=== PATIENT | female | born 1930 | race Caucasian/White ===

== ENCOUNTER 2017-08-20 12:50 | Emergency (ER) | payer OTHER, MEDICARE ==
[2017-08-20 13:14] VITALS: TEMP 98; BMI 19.7
--- NOTE | 2017-08-20 13:16 | PDOC ---
History of Present Illness - General Chief Complaint: Syncope/Near Syncope Stated Complaint: SYNCOPE Time Seen by Provider: 08/20/17 13:15 - History of Present Illness Initial Comments: 08/20/17 13:17 Ms. Go is an 87 yo female w/ pmh of HTN, 2 "slipped discs," chronic arthritis pain for which she sees a pain management physician (Dr. Phelps) who presents after patient observed to have "passed out" while eating lunch today at the table. Per home health aid who was taking care of her she did not fall or hit her head but remained seated in her chair. Son who is with her reports that she took a new pain medication last night before bedtime but he cannot recall what it was. He reports she did not seem herself this morning either. Ms. Go currently feels her normal self however is complaining of "pulling" of her leg muscles that she says is common for her and her son terms muscle spasms. The patient denies chest pain, shortness of breath, headache and dizziness. Denies fever, chills, nausea, vomit, diarrhea and constipation. Denies dysuria, frequency, urgency and hematuria. Past History - Past Medical History Allergies/Adverse Reactions: Allergies Allergy/AdvReac Type Severity Reaction Status Date / Time Sulfa (Sulfonamide Allergy Intermediate ITCHY Verified 08/25/15 08:38 Antibiotics) THROAT [Sulfa(Sulfonamide Antibiotics)] celecoxib [From Celebrex] Allergy Mild Rash Verified 08/25/15 08:38 Penicillins Allergy Mild Hives Verified 08/25/15 08:38 tolnaftate [From Tinactin] Allergy Unknown Verified 08/25/15 08:38 levofloxacin [From Levaquin] Allergy Verified 08/25/15 08:38 Home Medications: Ambulatory Orders Alprazolam [Xanax] 0.125 mg PO HS 08/25/15 Multivitamin [Poly-Vitamin] 1 each PO DAILY 08/25/15 Heparin - 5,000 unit SQ BID vial 08/30/15 Silver Sulfadiazine 1% Top Cr [Silvadene -] 1 applic TP BID jar 08/30/15 traMADol HCL [Ultram -] 25 mg PO TID PRN #30 tablet MDD 3 08/30/15 Nitrofurantoin Monohyd/M-Cryst [Macrobid -] 100 mg PO BID #14 capsule 08/20/17 Anemia: No Asthma: No Cancer: No Cardiac Disorders: No CVA: No COPD: No HTN: Yes - Surgical History Abdominal Surgery: Yes (HERNIA REPAIR: 06/2011) - Immunization History Immunization Up to Date: Yes - Suicide/Smoking/Psychosocial Hx Smoking Status: Yes Smoking History: Unknown if ever smoked Have you smoked in the past 12 months: No Number of Cigarettes Smoked Daily: 0 Hx Alcohol Use: No Drug/Substance Use Hx: No Substance Use Type: None Hx Substance Use Treatment: No Review of Systems - Review of Systems Comments:: 08/20/17 13:48 GENERAL/CONSTITUTIONAL: No fever or chills. No weakness. HEAD, EYES, EARS, NOSE AND THROAT: No change in vision. No ear pain or discharge. No sore throat. CARDIOVASCULAR: No chest pain or shortness of breath RESPIRATORY: No cough, wheezing, or hemoptysis. GASTROINTESTINAL: No nausea, vomiting, diarrhea or constipation. GENITOURINARY: No dysuria, frequency, or change in urination. MUSCULOSKELETAL: No joint or muscle swelling or pain. No neck or back pain. SKIN: No rash NEUROLOGIC: No headache, vertigo, loss of consciousness, or change in strength/ sensation. ENDOCRINE: No increased thirst. No abnormal weight change HEMATOLOGIC/LYMPHATIC: No anemia, easy bleeding, or history of blood clots. ALLERGIC/IMMUNOLOGIC: No hives or skin allergy. *Physical Exam - Vital Signs Last Vital Signs Temp Pulse Resp BP Pulse Ox 98.0 F 82 18 151/73 96 08/20/17 13:07 08/20/17 13:07 08/20/17 13:07 08/20/17 13:07 08/20/17 13:07 - Physical Exam Comments: 08/20/17 13:48 GENERAL: Awake, alert, and fully oriented, in no acute distress HEAD: No signs of trauma, normocephalic, atraumatic EYES: PERRLA, EOMI, sclera anicteric, conjunctiva clear ENT: Auricles normal inspection, hearing grossly normal, nares patent, oropharynx clear without exudates. Moist mucosa NECK: Normal ROM, supple, no lymphadenopathy, JVD, or masses LUNGS: No distress, speaks full sentences, clear to auscultation bilaterally HEART: Regular rate and rhythm, normal S1 and S2, no murmurs, rubs or gallops, peripheral pulses normal and equal bilaterally. ABDOMEN: Soft, nontender, normoactive bowel sounds. No guarding, no rebound. No masses EXTREMITIES: Normal inspection, Normal range of motion, no edema. No clubbing or cyanosis. NEUROLOGICAL: Cranial nerves II through XII grossly intact. Normal speech, normal gait, no focal sensorimotor deficits SKIN: Warm, Dry, normal turgor, no rashes or lesions noted. ED Treatment Course - LABORATORY CBC & Chemistry Diagram: 08/20/17 13:30 08/20/17 13:30 Medical Decision Making - Medical Decision Making 08/20/17 16:11 Ms. Go is an 87 yo female w/ pmh as described who presents for evaluation of syncopal episode. Patient newly placed on Baclofen and per son and aide she was altered after taking it for the first time last night until her syncopal episode. Is reportedly back to baseline upon arrival to ER per son and aide. Labs significant for Leukocyte Esterase of 3+, EKG normal, labs otherwise unconcerning as below. Concern for acute process at this time very low as patient back to baseline with stable vitals, no troponin elevation, no continuing symptoms, and patient resting comfortably. PCP paged to alert of presentation and discuss further care and follow-up needs. 08/20/17 16:[address] Dyer (covering for Dr. Montero) who agrees with plan to treat for UTI and discharge with follow-up evaluation this week. Macrobid given in ED and sent to patient's pharmacy as well. Discharging to home. Laboratory Results - last 24 hr 08/20/17 08/20/17 08/20/17 13:30 13:30 15:19 WBC 5.0 D RBC 3.63 Hgb 11.7 Hct 34.3 MCV 94.5 MCH 32.2 MCHC 34.1 RDW 13.1 Plt Count 216 MPV 6.9 L Neutrophils % 74.5 Lymphocytes % 19.0 D Monocytes % 5.3 Eosinophils % 0.5 Basophils % 0.7 Sodium 140 Potassium 4.6 Chloride 102 Carbon Dioxide 30 Anion Gap 8 BUN 29 H Creatinine 1.2 H Creat Clearance w eGFR 42.30 Random Glucose 125 H Calcium 8.6 Total Bilirubin 0.4 AST 16 ALT 19 Alkaline Phosphatase 60 Creatine Kinase 80 Troponin I < 0.02 Total Protein 6.2 L Albumin 3.5 Urine Color Yellow Urine Appearance Cloudy Urine pH 8.0 D Ur Specific [place] 1.015 Urine Protein Negative Urine Glucose (UA) Negative Urine Ketones Negative Urine Blood Negative Urine Nitrite Negative Urine Bilirubin Negative Urine Urobilinogen Negative Ur Leukocyte Esterase 3+ H *DC/Admit/Observation/Transfer Diagnosis at time of Disposition: UTI (urinary tract infection) Qualifiers: Urinary tract infection type: site unspecified Hematuria presence: without hematuria Qualified Code(s): N39.0 - Urinary tract infection, site not specified Syncope Qualifiers: Syncope type: unspecified Qualified Code(s): R55 - Syncope and collapse - Discharge Dispostion Disposition: HOME - Referrals Referrals: Francisco Montero MD [Primary Care Provider] - - Patient Instructions Printed Discharge Instructions: DI for Urinary Tract Infection (UTI), DI for Syncope in Adults (Fainting) Additional Instructions: Please return if any pain, fever, chills, altered mental status, or any other concerning symptoms. Follow-up with primary care provider this week in clinic for further evaluation. A prescription for your UTI has been sent to your pharmacy. Take medications as prescribed. - Post Discharge Activity
[2017-08-20 13:37] LABS: BASO % 0.7 % (0-2.0); EOS % 0.5 % (0-4.5); HEMATOCRIT 34.3 % (32.4-45.2); HEMOGLOBIN 11.7 GM/dL (10.7-15.3); MCH 32.2 pg (25.7-33.7); MCHC 34.1 g/dl (32.0-36.0); MEAN CELL VOLUME 94.5 fl (80-96); MEAN PLT VOLUME 6.9 fl (7.5-11.1); MONO % 5.3 % (3.8-10.2); NEUT % 74.5 % (42.8-82.8); PLATELET COUNT 216 K/MM3 (134-434); RBC 3.63 M/mm3 (3.60-5.2); RDW 13.1 % (11.6-15.6)
[2017-08-20 14:03] LABS: ALBUMIN 3.5 g/dl (3.4-5.0); ANION GAP 8 (8-16); BILIRUBIN,TOTAL 0.4 mg/dL (0.2-1.0); BLOOD UREA NITROGEN 29 mg/dL (7-18); CALCIUM 8.6 mg/dL (8.5-10.1); CHLORIDE 102 mmol/L (98-107); CO2 30 mmol/L (21-32); CREATININE 1.2 mg/dL (0.55-1.02); GLUCOSE,RANDOM 125 mg/dL (74-106); POTASSIUM 4.6 mmol/L (3.5-5.1); SGOT/AST 16 U/L (15-37); SGPT/ALT 19 U/L (12-78); SODIUM 140 mmol/L (136-145); TOT PROT 6.2 g/dl (6.4-8.2)
[2017-08-20 14:06] LABS: ALK PHOS 60 U/L (45-117)
--- NOTE | 2017-08-20 15:31 | PDOC ---
Attending Attestation - Resident Resident Name: Drew Mcgill - ED Attending Attestation I have performed the following: I have examined & evaluated the patient, The case was reviewed & discussed with the resident, I agree w/resident's findings & plan - HPI HPI: 08/20/17 15:26 87-year-old female presents brought in by aid and EMS after syncopal episode this morning. Patient took her first dose of baclofen last night, and since then has been increasingly somnolent including this morning. While eating breakfast, the patient was witnessed to lose consciousness, the aide had difficulty arousing her, so she activated EMS. Patient arrives here without complaints, states she simply feels tired since taking her new pain medication. Denied a chest pain/palpitations, no history of recurring syncope, no recent infections or dehydration. Patient is currently at her baseline without complaints, aide confirms. - Physicial Exam PE: 08/20/17 15:27 Vital signs are normal Well-appearing, very alert and oriented 87-year-old woman in stretcher Moist mucosa Heart is regular, lungs are clear, abdomen benign Negative trauma exam Nonfocal neuro exam - Medical Decision Making 08/20/17 15:28 Patient seen and evaluated with the resident. I agree with the overall evaluation, assessment, and management with the following summary of visit: 87-year-old female with syncope in the setting of somnolence, likely secondary to starting baclofen last night. Feels well now, no cardiopulmonary or infectious complaints. check full labs, urinalysis cxr, ekg discuss with Dr. Montero. Pt wants to go home and does not feel need tele monitoring as is confident this was clearly associated with the new pill and not any heart complaints. 08/20/17 16:19 no leukocytosis, normal diff. Cr 1.2, will obtain baseline. UA with 3+ leuks, would treat for UTI if wbc elevated. PCP called, will confirm baseline Cr to r/o SAVANNAH and arrange dispo plan. Heart Score/ECG Review #1 ECG reviewed & interpreted by me at: 13:36 General ECG Interpretation: Sinus Rhythm, Normal Rate (71), Normal Intervals ( qtc 449), No acute ischemic changes
[2017-08-20 15:46] LABS: URINE APPEARANCE CLOUDY; URINE BILIRUBIN NEGATIVE (<2.0 mg/dL); URINE COLOR YELLOW; URINE GLUCOSE (UA) NEGATIVE (NEGATIVE); URINE KETONE NEGATIVE (NEGATIVE); URINE NITRITE NEGATIVE (NEGATIVE); URINE PROTEIN NEGATIVE (NEGATIVE); URINE UROBILINOGEN NEGATIVE mg/dL (0.2-1.0)
[2017-08-20 16:01] LABS: URINE LEUK ESTERASE 3+ (NEGATIVE)
[2017-08-20 16:32] LABS: EPI CELLS RARE /HPF (FEW)
[2017-08-20] MEDS ORDERED: NITROFURANTOIN MACROCRYSTAL 50 MG CAPSULE (FP) PO SCH (17:15)
[2017-08-20] MEDS ORDERED: NITROFURANTOIN MACROCRYSTAL 50 MG CAPSULE (FP) ONE (17:27)
[2017-08-20 18:26] VITALS: BP 155/66; PULSE 68
--- NOTE | 2017-08-21 10:40 | EKG ---
Test Reason : Blood Pressure : / mmHG Vent. Rate : 071 BPM Atrial Rate : 071 BPM P-R Int : 176 ms QRS Dur : 062 ms QT Int : 414 ms P-R-T Axes : 103 071 065 degrees QTc Int : 449 ms POOR DATA QUALITY, INTERPRETATION MAY BE ADVERSELY AFFECTED NORMAL SINUS RHYTHM SEPTAL INFARCT (CITED ON OR BEFORE 25-AUG-2015) ABNORMAL ECG WHEN COMPARED WITH ECG OF 25-AUG-2015 08:23, QUESTIONABLE CHANGE IN INITIAL FORCES OF ANTERIOR LEADS ST NO LONGER DEPRESSED IN ANTERIOR LEADS Confirmed by MAYE MICHELE, AQUILES ([id number]) on 08/21/2017 10:39:25 AM Referred By: Confirmed By:AQUILES VILLAVICENCIO MD
== END 2017-08-20 18:25 | disposition home or self-care (01) ==
LOC: JER 12:50
DX: N39.0 Urinary tract infection, site not specified (principal); R55 Syncope and collapse; I10 Essential (primary) hypertension; M12.9 Arthropathy, unspecified; Z88.8 Allergy status to other drugs, medicaments and biological substances
CPT/HCPCS: 36415; 71045-TC-FY; 80053; 81003; 81015; 82550; 84484; 85025; 87086; 87186; 93005; 93010; 99285-25

== ENCOUNTER 2018-01-30 17:16 | Emergency (ER) | payer OTHER, MEDICARE ==
--- NOTE | 2018-01-30 17:23 | PDOC ---
Rapid Medical Evaluation Chief Complaint: Head/Neck problem Time Seen by Provider: 01/30/18 17:19 Medical Evaluation: Allergies Allergy/AdvReac Type Severity Reaction Status Date / Time Sulfa (Sulfonamide Allergy Intermediate ITCHY Verified 08/25/15 08:38 Antibiotics) THROAT [Sulfa(Sulfonamide Antibiotics)] celecoxib [From Celebrex] Allergy Mild Rash Verified 08/25/15 08:38 Penicillins Allergy Mild Hives Verified 08/25/15 08:38 tolnaftate [From Tinactin] Allergy Unknown Verified 08/25/15 08:38 levofloxacin [From Levaquin] Allergy Verified 08/25/15 08:38 01/30/18 17:20 I have performed a brief in person evaluation of this patient. The patient present with a CC of: Head Injury Pt is a 87 YO female who states that she stood up and she fell back and hit the back of her head on a box. She denies LOC. Denies being on anticoagulants. Pertinent PE findings: Skin: 0.5 cm laceration to the posterior aspect. No bleeding, no signs of secondary infection. Lungs Clear Heart RRR Abd: Soft, non distended. Neuro: Alert and oriented Psych: Appropriate affect I have ordered the following: Head CT The patient will proceed to the ED for further evaluation: Discharge Disposition - Diagnosis Head injury Qualifiers: Encounter type: initial encounter Qualified Code(s): S09.90XA - Unspecified injury of head, initial encounter - Referrals - Patient Instructions - Post Discharge Activity
[2018-01-30 17:24] VITALS: BP 165/72; PULSE 85; TEMP 98.2; BMI 19.3
--- NOTE | 2018-01-30 18:32 | PDOC ---
History of Present Illness - General Chief Complaint: Head/Neck problem Stated Complaint: FALL/INJURY Time Seen by Provider: 01/30/18 17:19 History Source: Patient Exam Limitations: No Limitations - History of Present Illness Initial Comments: 01/30/18 18:32 CHIEF COMPLAINT: Fall HISTORY OF PRESENT ILLNESS: This is an 87-year-old female with a history of hypertension and arthritis who presents with her son and 8 following a mechanical fall at home. She reports that she slipped while standing up and hit the back of her head on a box. She did not lose consciousness. She has no complaints. REVIEW OF SYSTEMS: GENERAL/CONSTITUTIONAL: No fever or chills. No weakness. No weight change. HEAD, EYES, EARS, NOSE AND THROAT: No change in vision. No ear pain or discharge. No sore throat. CARDIOVASCULAR: No chest pain or palpitations. RESPIRATORY: No cough, wheezing, or shortness of breath. GASTROINTESTINAL: No nausea, vomiting, diarrhea or constipation. GENITOURINARY: No dysuria, frequency, or change in urination. MUSCULOSKELETAL: No joint or muscle swelling or pain. No neck or back pain. SKIN: Right upper arm laceration. NEUROLOGIC: No headache, vertigo, loss of consciousness, or loss of sensation. PSYCHIATRIC: No depression or anxiety. ENDOCRINE: No increased thirst. No abnormal weight change. HEMATOLOGIC/LYMPHATIC: No anemia, easy bleeding, or history of blood clots. ALLERGIC/IMMUNOLOGIC: No hives or skin allergy. No latex allergy. PHYSICAL EXAM: GENERAL: The patient is awake, alert, and fully oriented, in no acute distress. HEAD: Normal with no signs of trauma. ENT: Pupils equal, round and reactive to light, extraocular movements intact, sclera anicteric, conjunctiva clear. Neck supple. LUNGS: Clear to auscultation bilaterally. Normal excursion. No respiratory distress or use of accessory muscles. CV: RRR, S1/S2, no MRG. Cap refill < 2 sec. ABDOMEN: Soft, non-distended, non-tender. EXTREMITIES: Normal range of motion, no edema. NEUROLOGICAL: Normal speech, normal gait. CN II-XII grossly intact. PSYCH: Normal mood, normal affect. SKIN: 2.5 cm right upper arm skin tear, minimal active bleeding. Superficial laceration to occipital scalp, no active bleeding. Past History - Past Medical History Allergies/Adverse Reactions: Allergies Allergy/AdvReac Type Severity Reaction Status Date / Time Sulfa (Sulfonamide Allergy Intermediate ITCHY Verified 01/30/18 17:21 Antibiotics) THROAT [Sulfa(Sulfonamide Antibiotics)] celecoxib [From Celebrex] Allergy Mild Rash Verified 01/30/18 17:21 Penicillins Allergy Mild Hives Verified 01/30/18 17:21 tolnaftate [From Tinactin] Allergy Unknown Verified 01/30/18 17:21 levofloxacin [From Levaquin] Allergy Verified 01/30/18 17:21 Home Medications: Ambulatory Orders Alprazolam [Xanax] 0.125 mg PO HS 08/25/15 Multivitamin [Poly-Vitamin] 1 each PO DAILY 08/25/15 Heparin - 5,000 unit SQ BID vial 08/30/15 Silver Sulfadiazine 1% Top Cr [Silvadene -] 1 applic TP BID jar 08/30/15 traMADol HCL [Ultram -] 25 mg PO TID PRN #30 tablet MDD 3 08/30/15 Nitrofurantoin Monohyd/M-Cryst [Macrobid -] 100 mg PO BID #14 capsule 08/20/17 Anemia: No Asthma: No Cancer: No Cardiac Disorders: No CVA: No COPD: No HTN: Yes - Surgical History Abdominal Surgery: Yes (HERNIA REPAIR: 06/2011) - Immunization History Immunization Up to Date: Yes - Suicide/Smoking/Psychosocial Hx Smoking Status: Yes Smoking History: Former smoker Have you smoked in the past 12 months: No Number of Cigarettes Smoked Daily: 0 Information on smoking cessation initiated: No Hx Alcohol Use: No Drug/Substance Use Hx: No Substance Use Type: None Hx Substance Use Treatment: No *Physical Exam - Vital Signs Last Vital Signs Temp Pulse Resp BP Pulse Ox 98.2 F 85 18 165/72 100 01/30/18 17:22 01/30/18 17:22 01/30/18 17:22 01/30/18 17:22 01/30/18 17:22 Procedures - Laceration/Wound Repair Right Arm Wound Length: 2.6 to 5.0 cm Wound Explored: clean, no foreign body present Wound's Depth, Shape: flap Irrigated w/ Saline: Yes Betadine Prep: Yes Wound Debrided: minimal Wound Repaired With: Dermabond Medical Decision Making - Medical Decision Making 01/30/18 18:35 A/P: 87-year-old female with minor injuries following a mechanical fall without loss of consciousness. 1. CT brain is negative for acute intracranial process 2. Wounds irrigated; right arm laceration repaired with Dermabond and dressed 3. Tetanus updated 4. Follow-up instructions and return precautions reviewed *DC/Admit/Observation/Transfer Diagnosis at time of Disposition: Head injury Qualifiers: Encounter type: initial encounter Qualified Code(s): S09.90XA - Unspecified injury of head, initial encounter Fall Qualifiers: Encounter type: initial encounter Qualified Code(s): W19.XXXA - Unspecified fall, initial encounter Arm laceration Qualifiers: Encounter type: initial encounter Laterality: right Qualified Code(s): S41.111A - Laceration without foreign body of right upper arm, initial encounter - Discharge Dispostion Disposition: HOME Condition at time of disposition: Stable Decision to Admit order: No - Referrals Referrals: Francisco Montero MD [Primary Care Provider] - 1 week - Patient Instructions Printed Discharge Instructions: DI for Closed Head Injury Additional Instructions: Keep the right arm clean and dry for 24 hours. After that, you may wash gently with soap and water. The skin glue will remove itself when ready. Follow-up with Dr. Montero. Return here for severe headaches, loss of consciousness, multiple episodes of vomiting, or any other concerning symptoms. - Post Discharge Activity
[2018-01-30] MEDS ORDERED: DIPHTH,PERTUSS(ACELL),TET 0.5 ML DISP.SYRIN IM ONE (18:33)
== END 2018-01-30 19:10 | disposition home or self-care (01) ==
LOC: JER 17:16
PROC: 3E0234Z Introduction of Serum, Toxoid and Vaccine into Muscle, Percutaneous Approach (ICD-10-PCS; principal; 2018-01-30)
PROC: 0HQBXZZ Repair Right Upper Arm Skin, External Approach (ICD-10-PCS; 2018-01-30)
DX: S41.111A Laceration without foreign body of right upper arm, initial encounter (principal); S01.01XA Laceration without foreign body of scalp, initial encounter; W01.198A Fall on same level from slipping, tripping and stumbling with subsequent striking against other object, initial encounter; Y93.89 Activity, other specified; Y92.038 Other place in apartment as the place of occurrence of the external cause; Y99.8 Other external cause status; I10 Essential (primary) hypertension; Z88.0 Allergy status to penicillin; Z88.2 Allergy status to sulfonamides; Z88.6 Allergy status to analgesic agent; Z88.8 Allergy status to other drugs, medicaments and biological substances
CPT/HCPCS: 70450-TC; 90715; 99283-25